=== PATIENT | female | born 1950 | race Caucasian/White ===

== ENCOUNTER 2022-05-29 10:06 | Day surgery (SDC) | payer MEDICARE ==
[2022-05-29] VITALS (10 sets, daily range): BP systolic 102–148; BP diastolic 54–71
[~2022-05-29] VITALS: Ht 165.1 cm; Wt 94.4 kg
[2022-05-29] MEDS ORDERED: LORazepam 0.5 MG tablet PO PRN (10:25)
[2022-05-29] MEDS ORDERED: LIDOcaine/PRILOcaine 5gm cream TP ONE (10:25)
[2022-05-29] MEDS ORDERED: diphenhydrAMINE 25mg capsule PO PRN (10:25)
[2022-05-29] MEDS ORDERED: normal saline 1,000 ML IV SCH (10:25)
[2022-05-29] MEDS ORDERED: nitroGLYCERIN-Tridil 50MG/D5W 250 ML IV ONE (10:51)
[2022-05-29] MEDS ORDERED: verapamil 2.5 mg/ml inj IV ONE (10:52)
[2022-05-29] MEDS ORDERED: heparin 1,000unit/ml 10ml vial 10 ML ONE (10:52)
[2022-05-29] MEDS ORDERED: iohexol 350MG/ML 100ml bottle IV ONE ×2 (10:52→11:57)
[2022-05-29] MEDS ORDERED: midazolam 1 mg/ML 2ml injection ONE (10:52)
[2022-05-29] MEDS ORDERED: LIDOcaine 1% (10mg/ml) 2ml vial ONE ×2 (10:52→11:35)
[2022-05-29] MEDS ORDERED: fentaNYL/PF 50MCG/1 ML 2ML syringe ONE (10:52)
[2022-05-29 11:00] LABS: APTT 32 SECONDS (22-32)
[2022-05-29] MEDS ORDERED: DABI150C PO (11:08)
[2022-05-29] MEDS ORDERED: OLME-38 PO (11:08)
[2022-05-29] MEDS ORDERED: DRON400T6 PO (11:08)
[2022-05-29] MEDS ORDERED: VENL150C58 PO (11:09)
[2022-05-29] MEDS ORDERED: diphenhydrAMINE 50 mg/ml inj ONE (11:25)
[2022-05-29] MEDS ORDERED: normal saline 1000ml 1,000 ML IV SCH (12:50)
[2022-05-29 14:48] LABS: ISTAT HGB ART 12.6 g/dl (12.0-16.0); ISTAT Hct ART 37 %PCV (35-45); ISTAT O2 SATURATION ARTERIAL 92 % (95-98); ISTAT SOURCE ART
[2022-06-03 06:26] LABS: ISTAT Hct MIX 37 %PCV (35-45); ISTAT O2 SATURATION MIX VENOUS 62 % (60-80); ISTAT SOURCE VEN
== END 2022-05-29 17:30 | disposition home or self-care (01) ==
LOC: SSTAY O 10:06
PROVIDERS: ATTEND Internal Medicine Cardiovascular Disease
DX: I25.10 Atherosclerotic heart disease of native coronary artery without angina pectoris (principal); I48.0 Paroxysmal atrial fibrillation; E78.5 Hyperlipidemia, unspecified; Z88.6 Allergy status to analgesic agent; Z79.01 Long term (current) use of anticoagulants; Z79.899 Other long term (current) drug therapy; Z98.890 Other specified postprocedural states; Z86.73 Personal history of transient ischemic attack (TIA), and cerebral infarction without residual deficits; Z90.13 Acquired absence of bilateral breasts and nipples
CPT/HCPCS: 36415; 76937; 82803; 85014; 85610; 85730; 93005; 93460; 93567; 99152; 99153; C1751; C1769; C1894; J1200; J1644; J2250; J3010; J3490; J7030; Q9967; A4620; A5120; A6258; A6402

== ENCOUNTER 2022-06-19 11:29 | Outpatient (CLI) | payer MEDICARE ==
[~2022-06-19 11:29] MED LIST: DABI150C PO; DRON400T6 PO; OLME-38 PO; VENL150C58 PO
[2022-06-19 12:00] LABS: BASOPHILS % (AUTO) 0.7 % (0-1); EOSINOPHILS # (AUTO) 0.1 X10'3 (0-0.9); EOSINOPHILS % (AUTO) 1.4 % (0-6); HEMATOCRIT 40.5 % (35.0-45.0); HEMOGLOBIN 13.4 g/dl (12.0-16.0); LYMPHOCYTES # (AUTO) 1.5 X10'3 (1.1-4.8); MEAN CORPUSCULAR HEMOGLOBIN 30.5 PG (27.0-31.0); MEAN CORPUSCULAR HGB CONC 33.2 g/dL (33.0-36.5); MEAN CORPUSCULAR VOLUME 91.8 FL (78-98); MEAN PLATELET VOLUME 8.6 FL (7.4-10.4); MONOCYTES # (AUTO) 0.4 X10'3 (0-0.9); MONOCYTES % (AUTO) 9.2 % (2-12); NEUTROPHILS # (AUTO) 2.7 X10'3 (1.8-7.7); NEUTROPHILS % (AUTO) 56.7 % (42-75); PLATELET COUNT 241 X10'3 (140-440); RED BLOOD COUNT 4.41 X10'6 (4.20-5.60); RED CELL DISTRIBUTION WIDTH 13.2 % (11.5-14.5); WHITE BLOOD COUNT 4.8 X10'3 (4.5-11.0)
[2022-06-19 12:12] LABS: APTT 53 SECONDS (22-32)
[2022-06-19 12:16] LABS: ALANINE AMINOTRANSFERASE 20 U/L (12-78); ALBUMIN 3.6 G/DL (3.4-5.0); ALBUMIN/GLOBULIN RATIO 0.9 (1.1-1.5); ALKALINE PHOSPHATASE 56 IU/L (46-116); ANION GAP 4 (8-16); ASPARTATE AMINO TRANSFERASE 27 U/L (10-37); BILIRUBIN,TOTAL 0.4 MG/DL (0.1-1.0); BLOOD UREA NITROGEN 36 MG/DL (7-18); BUN/CREATININE RATIO 31.3 (6.6-38.0); CALCIUM 9.3 MG/DL (8.5-10.1); CHLORIDE 103 MMOL/L (99-107); CREATININE 1.15 MG/DL (0.40-0.90); GLUCOSE 103 MG/DL (70-104); POTASSIUM 3.9 MMOL/L (3.5-5.1); SODIUM 139 MMOL/L (135-145); TOTAL CARBON DIOXIDE 31.7 MMOL/L (24-32); TOTAL PROTEIN 7.4 G/DL (6.4-8.2); eGFR 47 ML/MIN
[2022-06-19] MEDS ORDERED: IODIXANOL 320 MG/ML INFUS..BTL 100ML IV ONE ×2 (12:41→12:56)
== END 2022-06-19 23:59 | disposition home or self-care (01) ==
LOC: RAD 11:29
PROVIDERS: ATTEND Internal Medicine Cardiovascular Disease
DX: Z01.818 Encounter for other preprocedural examination (principal); I08.0 Rheumatic disorders of both mitral and aortic valves; I65.23 Occlusion and stenosis of bilateral carotid arteries; J84.10 Pulmonary fibrosis, unspecified; K76.0 Fatty (change of) liver, not elsewhere classified; K57.30 Diverticulosis of large intestine without perforation or abscess without bleeding; Z90.11 Acquired absence of right breast and nipple; K42.9 Umbilical hernia without obstruction or gangrene; N28.1 Cyst of kidney, acquired; M47.815 Spondylosis without myelopathy or radiculopathy, thoracolumbar region; I65.29 Occlusion and stenosis of unspecified carotid artery; Z87.891 Personal history of nicotine dependence; Z79.899 Other long term (current) drug therapy
CPT/HCPCS: 36415; 71046; 71275; 74174; 80053; 85025; 85610; 85730; 93880; 94010; 94727; 94729; J3490; Q9967

== ENCOUNTER 2022-06-27 08:51 | Outpatient (CLI) | payer MEDICARE ==
[~2022-06-27] VITALS: Ht 157.5 cm; Wt 96.4 kg
[2022-06-27 13:58] VITALS: BP 117/64
--- NOTE | 2022-06-27 13:59 | NUR ---
Patient was seen in the [facility] today to consult with Dr. Guzman, Dr. Sade Rodríguez and Dr. Luo. [facility] test completed. Vital signs measured. Patient education reviewed and questions answered.
== END 2022-06-27 23:59 | disposition home or self-care (01) ==
LOC: TAVR 08:51
PROVIDERS: ATTEND Internal Medicine Cardiovascular Disease
DX: Z13.6 Encounter for screening for cardiovascular disorders (principal)

== ENCOUNTER 2024-09-29 09:48 | Day surgery (SDC) | payer MEDICARE ==
[~2024-09-29] VITALS: Ht 162.6 cm; Wt 94.2 kg
[2024-09-29] VITALS (12 sets, daily range): BP systolic 106–153; BP diastolic 53–80; PULSE 50–59; RESP 14–16; TEMP 97.9; O2SAT 93–96
[2024-09-29] MEDS ORDERED: LORazepam 0.5 MG tablet PO PRN (10:15)
[2024-09-29] MEDS ORDERED: AMI200T PO (10:37)
[2024-09-29] MEDS ORDERED: ROSU20TA98 (10:38)
[2024-09-29] MEDS ORDERED: verapamil 2.5 mg/ml inj IV ONE (10:40)
[2024-09-29] MEDS ORDERED: LIDOcaine 1% (10mg/ml) 2ml vial ONE (10:40)
[2024-09-29] MEDS ORDERED: midazolam 1 mg/ML 2ml injection ONE (10:40)
[2024-09-29] MEDS ORDERED: fentaNYL/PF 50MCG/1 ML 2ML syringe ONE (10:41)
[2024-09-29] MEDS ORDERED: iohexol 350MG/ML 100ml bottle IV ONE (10:41)
[2024-09-29] MEDS ORDERED: heparin 1,000unit/ml 10ml vial 10 ML ONE (10:41)
[2024-09-29] MEDS ORDERED: iohexol 350 MG/ML 50ML vial IV ONE (10:41)
[2024-09-29] MEDS: normal saline 1,000 ML IV SCH (10:49)
[2024-09-29] MEDS: diphenhydrAMINE 25mg capsule PO PRN (10:49)
[2024-09-29 11:10] LABS: ALBUMIN 3.8 G/DL (3.4-5.0); ANION GAP 5 (8-16); BLOOD UREA NITROGEN 20 MG/DL (7-18); BUN/CREATININE RATIO 27.4 (10.0-20.0); CHLORIDE 103 MMOL/L (99-107); CREATININE 0.73 MG/DL (0.40-0.90); GLUCOSE 90 MG/DL (70-104); SODIUM 140 MMOL/L (135-145); TOTAL CARBON DIOXIDE 32.2 MMOL/L (24-32); eCRCL 59 ML/MIN; eGFR 78 ML/MIN
[2024-09-29 11:13] LABS: POTASSIUM 4.3 MMOL/L (3.5-5.1); PROTHROMBIN TIME 10.8 SECONDS (9.0-12.0)
[2024-09-29] MEDS: potassium Cl 20 mEq SR tablet PO ONE (12:50)
[2024-09-29] MEDS: normal saline 1000ml 1,000 ML IV ONE (12:51)
[2024-09-29] MEDS: furosemide 20 MG/2 ML vial IV ONE (12:51)
[2024-09-29 12:58] LABS: ISTAT HGB ART 11.9 g/dl (12.0-16.0); ISTAT Hct ART 35 %PCV (35-45); ISTAT O2 SATURATION ARTERIAL 99 % (95-98); ISTAT SOURCE BLNK
[2024-09-29 12:59] LABS: ISTAT HGB MIX 11.9 g/dl (12.0-16.0); ISTAT Hct MIX 35 %PCV (35-45); ISTAT O2 SATURATION MIX VENOUS 67 % (60-80); ISTAT SOURCE BLNK
== END 2024-09-29 17:45 | disposition home or self-care (01) ==
LOC: SSTAY O 09:48
PROVIDERS: ATTEND Internal Medicine Cardiovascular Disease
DX: I35.0 Nonrheumatic aortic (valve) stenosis (principal); I25.119 Atherosclerotic heart disease of native coronary artery with unspecified angina pectoris; I48.0 Paroxysmal atrial fibrillation; I10 Essential (primary) hypertension; E78.5 Hyperlipidemia, unspecified; Z78.0 Asymptomatic menopausal state; Z88.6 Allergy status to analgesic agent; Z86.73 Personal history of transient ischemic attack (TIA), and cerebral infarction without residual deficits; Z90.13 Acquired absence of bilateral breasts and nipples; Z82.49 Family history of ischemic heart disease and other diseases of the circulatory system
CPT/HCPCS: 36415; 80048; 82803; 85014; 85610; 93005; 93460; 99152; 99153; A6258; A6402; C1725; C1751; C1769; C1894; J1644; J1940; J2003; J2250; J3010; J3490; J7030; Q0163; Q9967; Z7610; 76937